=== PATIENT | male | born 1955 | race Caucasian/White ===

== ENCOUNTER 2025-02-16 09:38 | Outpatient (CLI) | payer MEDICARE, OTHER, SELFPAY ==
--- OUTSIDE RECORDS SUMMARY | 2025-02-15 12:10 | XMS_ITS | Continuity of Care Document ---
Author Name [facility] Organization [facility] Care Team Providers Care Metal Sprayer Name Role Phone [facility] Unavailable Unavailable Problems Combined list of problems from Department of Defense and Veterans Affairs facilities. It does not include entries that were removed or entered in error. Problem Status Onset Date Problem Type Date of Resolution Comments Source Anemia Active Condition [facility] N Anemia * (ICD-9-CM 285.9) Active Condition [facility] Atypical Chest Pain (ICD-9-CM 786.59) [place] Back Pain, Low Active Condition [place] Depression Active Condition [facility] N Depression (SNOMED CT 87176005) Active Condition [facility] Djd Of Hand Active Condition Jan 17, 2009 Entered By: ALICE RIVERA Comment: Bilat fingers [place] Elevated Liver Function Tests Active Condition [facility] N Fatigue (ICD-9-CM 780.79) Active Condition [facility] Fatty liver Active Condition [facility] N Gastroesophageal reflux disease Active Condition [facility] Hearing loss * (ICD-9-CM 389.9) Active [place] [facility] Liver function tests abnormal Active Condition [facility] Low back pain [facility] Opioid Dependence Active Condition [place] [facility] Tinnitus * (ICD-9-CM 388.30) Active Condition [place] Depression, NOS Inactive Condition 07/14/2014 [place] Lumbar Radiculopathy (ICD-9-CM 724.4) Inactive Condition 07/14/2014 [place] Other specified disorders of male genital organs (ICD-9-CM 608.89) Inactive Condition 07/14/2014 [place] OVERWEIGHT (ICD-9-CM 278.02) Inactive Condition 07/14/2014 [facility] UTI (ICD-9-CM 599.0) Inactive Condition 07/14/2014 [facility] Diagnosis: ICD-10-CM F33.42 Major depressive disorder, recurrent, in full remission Active Diagnosis [facility] Diagnosis: ICD-10-CM Z71.89 Other specified counseling Active Diagnosis [facility] Diagnosis: ICD-10-CM K76.0 Fatty (change of) liver, not elsewhere classified Active Diagnosis [facility] Diagnosis: ICD-10-CM Z23 Encounter for immunization Active Diagnosis [facility] Diagnosis: ICD-10-CM H40.013 Open angle with borderline findings, low risk, bilateral Active Diagnosis [facility] Diagnosis: ICD-10-CM G56.03 Carpal tunnel syndrome, bilateral upper limbs Active Diagnosis [facility] Diagnosis: ICD-10-CM Z71.9 Counseling, unspecified Active Diagnosis [facility] Diagnosis: ICD-10-CM I73.00 Raynaud's syndrome without gangrene Active Diagnosis [facility] Medications Combined list of outpatient medications from Department of Defense and [facility] facilities.Medications provided include 1) outpatient medications from the last 15 months, and 2) patient-reported medications. Medication Details Route Status Patient Instructions Prescription Expires Prescription Number Last Dispense Date Ordering Provider Order Date Order Qty Source FIBER 4GM CHEW TAB TAB,CHEWABL E CHEW BY MOUTH DIRECTED ORAL ACTIVE MACARENA AJ 2022 [place] [facility] HYDROMORPHO NE (FOR PUSH) INJ,SOLN INJECT SPINAL PAIN PUMP INTO THE VEIN DIRECTED INTRAV ENOUS ACTIVE MACARENA AJ 2022 [place] [facility] MULTIVITAMI NS W/MINERALS CAP/TAB TAKE 1 CAP(S)/T AB BY MOUTH DAILY ORAL ACTIVE COMERMESERET 2023 [place] [facility] PARAFFIN WAX USE AFFECTED AREA DIRECTED FOR SKIN TOPICA L ACTIVE 07/09/2025 [id number] COMER,MESERET R 2023 2724 [place] [facility] SERTRALINE HCL 100MG TAB TAKE ONE AND ONE-HALF TABLETS BY MOUTH DAILY FOR MOOD ORAL ACTIVE 07/24/2025 [id number] COMER,MESERET R 2024 135 [place] [facility] SERTRALINE HCL 100MG TAB TAKE ONE AND ONE-HALF TABLETS BY MOUTH DAILY FOR MOOD ORAL DISCONT INUED 01/24/2025 [id number] RAJ DEGROOT 2023 135 [place] [facility] TESTOSTERON E CYPIONATE 200MG/ML INJ (IN OIL) INJECT 100MG (0.5ML) INTO THE MUSCLE DIRECTED EVERY 2 WEEKS INTRAM MACARENA BARAJAS 2022 [place] [facility] URSODIOL CAP,ORAL TAKE 500MG BY MOUTH TWICE A DAY ORAL ACTIVE KRISTY RIVERA 2006 [place] [facility] VITAMIN E 400UNT CAP TAKE 1 CAPSULE BY MOUTH DAILY ORAL ACTIVE KRISTY RIVERA 2006 [place] [facility] Immunizations Combined list of available immunizations from the Department of Defense and [facility] facilities. Immunization Series Date Given Administered By Site Reaction Lot Number CVX Code Drug Bartender Helper Status Comments Source INFLUENZA, HIGH-DOSE, TRIVALENT, PF 2023 VAHESHARON Berto LEFT DELTO ID [id number] 135 complet ed Completed Series, ADMINISTE [place], UPPER [facility] PNEUMOCOCCAL CONJUGATE PCV20, POLYSACCHARID E [id number] CONJUGATE, ADJUVANT, PF 2022 KERMIT MOHAMUD LEFT DELTO ID [id number] 216 complet ed Completed Series, [place], [facility] INFLUENZA, HIGH-DOSE, QUADRIVALENT 2022 FLORECITA QUACH LEFT DELTO ID [id number] 197 complet ed Completed Series, ADMINISTE [place] AT [place], [facility] INFLUENZA, INJECTABLE, QUADRIVALENT, PRESERVATIVE FREE 2021 150 complet ed [facility] INFLUENZA, ADJUVANTED, QUADRIVALENT, PF 1 2020 205 complet ed HISTORICA L INFORMATI ON - FROM OTHER REGISTRY, [place] [facility]-19 (PFIZER), MRNA, LNP-S, PF, 30 MCG/0.3 ML DOSE 3 2020 208 complet ed HISTORICA L INFORMATI ON - FROM OTHER REGISTRY, [place] [facility] COVID-19 (PFIZER), MRNA, LNP-S, PF, 30 MCG/0.3 ML DOSE 2 2020 208 complet ed PFR; [id number]; 1 [place] COVID-19 (PFIZER), MRNA, LNP-S, PF, 30 MCG/0.3 ML DOSE 1 2020 208 complet ed PFR; [id number]; 1 [place] INFLUENZA, INJECTABLE, QUADRIVALENT, PRESERVATIVE FREE 2019 150 complet ed [place] [facility] INFLUENZA, INJECTABLE, QUADRIVALENT, PRESERVATIVE FREE 2018 150 complet ed [facility] INFLUENZA, SEASONAL, INJECTABLE 2017 141 complet ed [place] [facility] PNEUMOCOCCAL POLYSACCHARID E [id number] 2017 33 complet ed [place] [facility] INFLUENZA A & B (HISTORICAL) 2016 88 complet ed [place] [facility] TDAP 2016 115 complet ed [place] [facility] TDAP (HISTORICAL) 2016 115 complet ed [place] [facility] INFLUENZA A & B (HISTORICAL) 2015 88 complet ed [place] [id number] (HISTORICAL) 2014 133 complet ed [place] [facility] INFLUENZA A & B (HISTORICAL) 2014 88 complet ed [place] FLU,3 YRS (HISTORICAL) 2013 88 complet ed [place] [facility] FLU,3 YRS (HISTORICAL) 2012 88 complet ed [place] [facility] FLU,3 YRS (HISTORICAL) 2011 88 complet ed [place] [facility] INFLUENZA A & B (HISTORICAL) 2010 88 complet ed [place] [facility] FLU,3 YRS (HISTORICAL) 2009 88 complet ed [place] [facility] INFLUENZA A & B (HISTORICAL) 2008 88 complet ed [place] [facility] FLU,3 YRS (HISTORICAL) 2007 88 complet ed [place] [facility] PNEUMOCOCCAL, UNSPECIFIED FORMULATION 2006 109 complet ed [place] [facility] FLU,3 YRS (HISTORICAL) 2006 88 complet ed [place] INFLUENZA A & B (HISTORICAL) 2005 88 complet ed [place] [facility] TD(ADULT) UNSPECIFIED FORMULATION 2004 139 complet ed [place] [facility] Results Combined list of recent chemistry, hematology and other laboratory results from Department of Defense and Veterans Affairs, ranging from 15 months to all on record, depending upon the facility. Order Name Results Value Reference Range Date Interpretation Specimen Comments Source ANTI-NUC LEAR Ab NUCLEAR AB [TITER] IN SERUM BY HEP2 SUBSTRATE <1:80 <1:80 - 180 07/23 Specimen Type: SERUM No comment entered. Ordering Provider: MESERET CARLTON Report Released Date/Time: Jul 23, 2024 12:08 PM Reporting Lab: [facility] [address] [address] Performing Lab: [facility] [address] [address] [facility] CELIAC DISEASE AB COMPREHE NSIVE IGA [MASS/VOLU ME] IN SERUM OR PLASMA 179 mg/dL 61 - 437 07/23 Specimen Type: SERUM No comment entered. Ordering Provider: MESERET CARLTON Report Released Date/Time: Jul 23, 2024 12:08 PM Reporting Lab: [facility] [address] [address] Performing Lab: [facility] [address] [address] [facility] CELIAC DISEASE AB COMPREHE NSIVE TISSUE TRANSGLUTA MINASE IGA AB [UNITS/VOL UME] IN SERUM <2 0 - 3 07/23 Specimen Type: SERUM No comment entered. Ordering Provider: MESERET CARLTON Report Released Date/Time: Jul 23, 2024 12:08 PM Reporting Lab: [address] [address] Performing Lab: [place] [id number] [facility] CELIAC DISEASE AB COMPREHE NSIVE TISSUE TRANSGLUTA MINASE IGG AB [UNITS/VOL UME] IN SERUM 3 0 - 5 07/23 Specimen Type: SERUM No comment entered. Ordering Provider: MESERET CARLTON Report Released Date/Time: Jul 23, 2024 12:08 PM Reporting Lab: [place] [phone] Performing Lab: [place] [id number] [facility] CELIAC DISEASE AB COMPREHE NSIVE ENDOMYSIUM IGA AB [PRESENCE] IN SERUM Negative 07/23 Specimen Type: SERUM No comment entered. Ordering Provider: MESERET CARLTON Report Released Date/Time: Jul 23, 2024 12:08 PM Reporting Lab: [address] [address] Performing Lab: [place] [id number] [facility] CELIAC DISEASE AB COMPREHE NSIVE GLIADIN PEPTIDE IGA AB [UNITS/VOL UME] IN SERUM 3 0 - 19 07/23 Specimen Type: SERUM No comment entered. Ordering Provider: MESERET CARLTON Report Released Date/Time: Jul 23, 2024 12:08 PM Reporting Lab: [address] [address] Performing Lab: [address] [address] [facility] CELIAC DISEASE AB COMPREHE NSIVE GLIADIN PEPTIDE IGG AB [UNITS/VOL UME] IN SERUM 2 0 - 19 07/23 Specimen Type: SERUM No comment entered. Ordering Provider: MESERET CARLTON Report Released Date/Time: Jul 23, 2024 12:08 PM Reporting Lab: [address] [address] Performing Lab: [address] [address] [facility] HBSAB HEPATITIS B VIRUS SURFACE AB [PRESENCE] IN SERUM BY IMMUNOASSA Y REACTIVE 07/23 Specimen Type: SERUM Comment: FOR HBSAB TESTING: Reactive HBsAb denotes immunity by vaccination or recovery from Hepatitis B infection. Individuals found to be reactive for both HBV Core AB total and HBsAb are immune due to prior natural infection. Individuals found to be nonreactive for HBV Core AB total and reactive for HBsAb (anti-HBs) are immune due to prior immunizatio n. Individuals found to be reactive for HBV Core AB total and nonreactive for HBsAb (anti-HBs) are considered to have a current Hepatitis B infection, either acute or chronic. Individuals found to be nonreactive for both HBV Core AB total and HBsAb are at risk for Hepatitis B infection (HBV) and HBV immunizatio n should be considered. FOR HEPATITIS A IGG ANTIBODY Reactive HAV-IgG indicates previous Hepatitis A infection or immunity by vaccination . Ordering Provider: MESERET CARLTON Report Released Date/Time: Jul 23, 2024 12:08 PM Reporting Lab: [address] [address] Performing Lab: [address] [address] [facility] HEPATITI S A IGG HEPATITIS A IGG Nonreact sky 07/23 Specimen Type: SERUM Comment: FOR HBSAB TESTING: Reactive HBsAb denotes immunity by vaccination or recovery from Hepatitis B infection. Individuals found to be reactive for both HBV Core AB total and HBsAb are immune due to prior natural infection. Individuals found to be nonreactive for HBV Core AB total and reactive for HBsAb (anti-HBs) are immune due to prior immunizatio n. Individuals found to be reactive for HBV Core AB total and nonreactive for HBsAb (anti-HBs) are considered to have a current Hepatitis B infection, either acute or chronic. Individuals found to be nonreactive for both HBV Core AB total and HBsAb are at risk for Hepatitis B infection (HBV) and HBV immunizatio n should be considered. FOR HEPATITIS A IGG ANTIBODY Reactive HAV-IgG indicates previous Hepatitis A infection or immunity by vaccination . Ordering Provider: MESERET CARLTON Report Released Date/Time: Jul 23, 2024 12:08 PM Reporting Lab: [place] [phone] Performing Lab: [place] [id number] IMMUNOGL OBULINS QUANT (SERUM) IGA [MASS/VOLU ME] IN SERUM OR PLASMA 178 mg/dL 61 - 437 07/23 Specimen Type: SERUM No comment entered. Ordering Provider: MESERET CARLTON Report Released Date/Time: Jul 23, 2024 12:08 PM Reporting Lab: [place] [phone] Performing Lab: [place] [id number] [facility] IMMUNOGL OBULINS QUANT (SERUM) IGG [MASS/VOLU ME] IN SERUM OR PLASMA 902 mg/dL 603 - 1613 07/23 Specimen Type: SERUM No comment entered. Ordering Provider: MESERET CARLTON Report Released Date/Time: Jul 23, 2024 12:08 PM Reporting Lab: [place] [phone] Performing Lab: [place] [id number] [facility] IMMUNOGL OBULINS QUANT (SERUM) IGM [MASS/VOLU ME] IN SERUM OR PLASMA 35 mg/dL 20 - 172 07/23 Specimen Type: SERUM No comment entered. Ordering Provider: MESERET CARLTON Report Released Date/Time: Jul 23, 2024 12:08 PM Reporting Lab: [place] [phone] Performing Lab: [address] [address] [facility] PROTHROM BIN TIME PROTHROMBI N TIME (PT) 13.6 s 11.7 - 14.4 07/23 Specimen Type: PLASMA No comment entered. Ordering Provider: MESERET CARLTON Report Released Date/Time: Jul 23, 2024 12:08 PM Reporting Lab: [address] [address] Performing Lab: [address] [address] [facility] PROTHROM BIN TIME INR IN PLATELET POOR PLASMA BY COAGULATIO N ASSAY 1.06 0.87 - 1.14 07/23 Specimen Type: PLASMA No comment entered. Ordering Provider: MESERET CARLTON Report Released Date/Time: Jul 23, 2024 12:08 PM Reporting Lab: [address] [address] Performing Lab: [address] [address] [facility] AFP, SERUM, TUMOR MARKER ALPHA-1-FE TOPROTEIN. TUMOR MARKER [MASS/VOLU ME] IN SERUM OR PLASMA 2.4 ng/mL 0.0 - 8.4 07/23 Specimen Type: SERUM Comment: [employer] Electrochem iluminescen ce Immunoassay (ECLIA) . Values obtained with different assay methods or kits cannot be used interchange ably. Results cannot be interpreted as absolute evidence of the presence or absence of malignant disease. This test is not interpretab le in females. Ordering Provider: MESERET CARLTON Report Released Date/Time: Jul 23, 2024 12:08 PM Reporting Lab: [address] [phone] Performing Lab: [address] [address] [facility] ALPHA-1- ANTITRYP SIN TOT & PHEN ALPHA 1 ANTITRYPSI N [MASS/VOLU ME] IN SERUM OR PLASMA 143 mg/dL 101 - 187 07/23 Specimen Type: SERUM Comment: MM Phenotype is considered to be normal , producing normal serum levels of alpha-1-pro tease inhibitor and not associated with clinical disease. Associated A1A total serum levels in other phenotypes and their incidence in the general population are shown in the table below. Phenotype Population % function A-1-AT Conc.* Incidence % compared to MM (Typical Range) MM 86.5% 100% (96 - 189) MS 8.0% 86% (83 - 161) MZ 3.9% 61% (60 - 111) FM 0.4% 100% (93 - 191) SZ 0.3% 41% (42 - 75) SS 0.1% 64% (62 - 119) ZZ 0.05% 19% (16 - 38) FS 0.05% 70% (70 - 128) FZ Unknown 46% (44 - 88) FF Unknown Unknown *A-1-AT concentrati on in the homozygous MM phenotype is taken as the reference normal. Percent deficiency in each phenotype is reported relative to this reference. Ranges used to confirm phenotype. Ordering Provider: MESERET CARLTON Report Released Date/Time: Jul 23, 2024 12:08 PM Reporting Lab: [facility] [address] [address] Performing Lab: [facility] [address] [address] [facility] ALPHA-1- ANTITRYP SIN TOT & PHEN ALPHA 1 ANTITRYPSI N PHENOTYPE [IDENTIFIE R] IN SERUM OR PLASMA BY IMMUNOFIXA TION MS 07/23 Specimen Type: SERUM Comment: MM Phenotype is considered to be normal , producing normal serum levels of alpha-1-pro tease inhibitor and not associated with clinical disease. Associated A1A total serum levels in other phenotypes and their incidence in the general population are shown in the table below. Phenotype Population % function A-1-AT Conc.* Incidence % compared to MM (Typical Range) MM 86.5% 100% (96 - 189) MS 8.0% 86% (83 - 161) MZ 3.9% 61% (60 - 111) FM 0.4% 100% (93 - 191) SZ 0.3% 41% (42 - 75) SS 0.1% 64% (62 - 119) ZZ 0.05% 19% (16 - 38) FS 0.05% 70% (70 - 128) FZ Unknown 46% (44 - 88) FF Unknown Unknown *A-1-AT concentrati on in the homozygous MM phenotype is taken as the reference normal. Percent deficiency in each phenotype is reported relative to this reference. Ranges used to confirm phenotype. Ordering Provider: MESERET CARLTON Report Released Date/Time: Jul 23, 2024 12:08 PM Reporting Lab: [address] [address] Performing Lab: [address] [address] [facility] CERULOPL ASMIN CERULOPLAS MIN [MASS/VOLU ME] IN SERUM OR PLASMA 26.8 mg/dL 16.0 - 31.0 07/23 Specimen Type: SERUM No comment entered. Ordering Provider: MESERET CARLTON Report Released Date/Time: Jul 23, 2024 12:08 PM Reporting Lab: [address] [address] Performing Lab: [address] [address] [facility] MITOCHON DRIAL Ab MITOCHONDR IA AB [TITER] IN SERUM BY IMMUNOFLUO RESCENCE <1:20 <1:20 - 120 07/23 Specimen Type: SERUM Comment: FOR HBSAG TEST: Reactive HBsAG indicates acute or chronic Hepatitis B infection. FOR HCV TESTING: Reactive HCV indicates probable Hepatitis C infection. All reactive Hepatitis C antibody results are flagged (reported as REACTIVE H) to enhance infectious disease tracking for [facility] patients. A nonreactive HCV antibody result does not exclude the possibility of exposure to HCV. Refer to https://www .hepatitis. [place].gov/ and the latest [facility] Hepatitis Directive for additional information and supplementa l testing guidelines. FOR ANTI-HBc TOTAL TESTING: The presence of anti-HBc total (IgG and IgM) is an indicator of HBV infection, either current (acute or chronic) or prior. Individuals found to be reactive for both anti-HBc total and HBsAb(anti- HBs) are immune due to prior natural infection. Individuals found to be nonreactive for anti-HBc total and reactive for HBsAb are immune due to a prior immunizatio n. Individuals found to be reactive for anti-HBc total and nonreactive for HBsAb are considered to have a current Hepatitis B infection (acute or chronic). Individuals found to be nonreactive for both anti-Hbc total and HBsAb are at risk for Hepatitis B infection and HBV immunizatio n should be considered. Ordering Provider: MESERET CARLTON Report Released Date/Time: Jul 23, 2024 12:08 PM Reporting Lab: [facility] [address] [address] Performing Lab: [facility] [address] [address] [facility] Vital Signs Combined list of inpatient and outpatient Vital Signs from Department of [facility] and [facility], ranging from 12 months to all on record, depending upon the facility. Vital Sign Value Date Comments Source SYSTOLIC BLOOD PRESSURE 163 07/23/2024 11:40:04 [facility] DIASTOLIC BLOOD PRESSURE 76 07/23/2024 11:40:04 [facility] PULSE OXIMETRY 99 07/23/2024 11:40:04 [facility] WEIGHT 190 07/23/2024 11:40:04 [place] [facility] BMI 27 kg/m2 07/23/2024 11:40:04 [place] [facility] PAIN 8 07/23/2024 11:40:04 [place] [facility] TEMPERATURE 98.2 07/23/2024 11:40:04 [place] [facility] PULSE 79 07/23/2024 11:40:04 [place] [facility] Encounters Combined list of: 1) Encounters from Department of Veterans Affairs facilities going backup to the last 18 months, not all [place] inpatient encounters are included; 2) Encounters from the Department of [facility] facilities going backup to 280 months. 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, unspeci ASHA Galvan 08/30 [place] [facility] O/P EST MOD 30 MIN [id number] Diagnos is: ICD-10- CM I73.00 Raynaud 's syndrom e without gangren e Berto AJ B 09/02 [place] [facility] Outpatient Encounter [id number] 09/03 [place] Outpatient Encounter [id number] 09/05 [place] [facility] HC PRO PHONE CALL 5-10 MIN [id number] Diagnos is: ICD-10- CM Z71.89 Other specifi ed corporate counselor Berto Colindres 10/17 [place] [facility] OFF/OP EST MAY X REQ PHY/QHP [id number] Diagnos is: ICD-10- CM 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 Hand Packer/Packager ing, unspeci chase SHARP,NO RMA J 10/20 [place] [facility] SELF CARE MNGMENT TRAINING [id number] Diagnos is: ICD-10- CM G56.03 Carpal tunnel syndrom e, bilater al upper limbs SAPPHIRE ROJAS S 11/17 [place] [facility] O/P EST HI 40 MIN [id number] Diagnos is: ICD-10- CM F33.42 Major depress sky disorde r, recurre nt, in full remissi on MONTY DEGROOT 01/23 [place] [facility] COMPRE OPH EXAM EST PT 1/> [id number] Diagnos is: ICD-10- CM H40.013 Open angle with borderl ine finding s, low risk, taina al LEYDI CHERRY 01/27 [place] [facility] Outpatient Encounter [id number] 02/16 [place] [facility] IMMUNIZ[facility] ON ADMIN [id number] Diagnos is: ICD-10- CM Z23 Encount er for immuniz atSHARON Holguin 05/20 [facility] Outpatient Encounter [id number] 06/23 [place] [facility] Outpatient Encounter [id number] 07/23 [place] [facility] OFFICE O/P EST MOD 30 MIN [id number] Diagnos is: ICD-10- CM K76.0 Fatty (change of) liver, not elsewhe re classif ied COMER,MESERET R 07/23 [place] [facility] Outpatient Encounter [id number] 07/24 [place] [facility] Outpatient Encounter [id number] 07/24 [place] Outpatient Encounter [id number] 07/24 [place] [facility] Outpatient Encounter [id number] 07/27 [place] HC PRO PHONE CALL 5-10 MIN [id number] Diagnos is: ICD-10- CM Z71.89 Other specifi ed corporate counselor Berto Colindres A 07/27 [place] [facility] Outpatient Encounter [id number] 08/11 [place] Outpatient Encounter [id number] 08/19 [place] PH1 ASSMT&MGMT NQHP 5-10 [id number] Diagnos is: ICD-10- CM Z71.89 Other specifi ed corporate counselor Berto Colindres A 08/19 [place] [facility] Outpatient Encounter [id number] 09/07 [place] Outpatient Encounter [id number] 09/24 [place] SYNCH AUDIO-VIDE O EST MOD 30 [id number] Diagnos is: ICD-10- CM F33.42 Major depress sky disorde r, recurre nt, in full remissi on MONTY DEGROOT PASCALE 01/14 [place] [facility] Outpatient Encounter [id number] 01/22 [place] [facility] Social History Combined list of available smoking, tobacco, and other social history from Department of Defense and [facility] facilities. Social History Type Response Date Comment Sourc e Tobacco smoking status [place] VA-TOBACCO NEVER USED 08/30/2023 [facility] History of tobacco use TX-TOBACCO NEVER USED 07/24/2023 [facility] History of tobacco use TX-TOBACCO NEVER USED 10/14/2020 [facility] History of tobacco use TX-TOBACCO NEVER USED 09/10/2019 [facility] History of tobacco use VATOBACCO NEVER USED 09/15/2018 [facility] History of tobacco use V9 LIFETIME NON-USER OF TOBACCO 08/13/2017 [facility] History of tobacco use V9 LIFETIME NON-USER OF TOBACCO 08/14/2016 [facility] History of tobacco use V9 LIFETIME NON-USER OF TOBACCO 07/15/2015 [facility] History of tobacco use V9 LIFETIME NON-USER OF TOBACCO 07/14/2014 [facility] History of tobacco use V9 LIFETIME NON-USER OF TOBACCO 07/07/2013 [facility] History of tobacco use V9 LIFETIME NON-USER OF TOBACCO 11/23/2011 [facility] History of tobacco use V9 LIFETIME NON-USER OF TOBACCO 01/17/2011 [facility] History of tobacco use V9 LIFETIME NON-USER OF TOBACCO 10/22/2006 [facility] This section is an empty social history section. [facility] Plan of Care List of future care activities from Department of [facility] facilities. Additional future care activities may be listed in the Assessment and Plan section. Date/Time Care Activity Care Activity Detail Facili ty 03/17/2025 AMBULATORY - MEDICINE AMBULATORY - MEDICI [facility]
--- OUTSIDE RECORDS SUMMARY | 2025-02-16 09:43 | XMS_ITS | Clinical Summary ---
Author Organization Healthcare Address [address] [place] [address] Care Team Providers Care Frame Carver Spindle Name Role Phone Pcp, No Primary Care Provider Unavailabl e Social History Tobacco Use Types Packs/Day Years Used Date Smoking Tobacco: Never Assessed Sex and Gender Information Value Date Recorded Sex Assigned at Not on file Legal Sex Male 7:37 PM EDT Gender Identity Not on file Sexual Orientation Not on file Plan of Treatment Not on file Insurance [employer]ARE [facility] Care Teams Frame Carver Spindle Relationship Specialty Start Date End Date Pcp, [facility] [address] [place] [address] PCP - General Family Medicine 04/21/24
--- OUTSIDE RECORDS SUMMARY | 2025-02-16 09:43 | XMS_ITS | Encounter Summary ---
Author Organization Healthcare Address [address] [place] [address] Care Team Providers Care Marketing Project Manager Name Role Phone Pcp, No Primary Care Provider Unavailabl e Encounter Details Date Type Department Care Team (Late st Contact Info) Description 04/23/2024 Lab Requisition [facility] [address] [place] [address] Oumar Eldridge DPM [address] [place] [address] Localized swelling, mass and lump, left lower limb Social History Tobacco Use Types Packs/Day Years Used Date Smoking Tobacco: Never Assessed Sex and Gender Information Value Date Recorded Sex Assigned at Not on file Legal Sex Male 7:37 PM EDT Gender Identity Not on file Sexual Orientation Not on file documented as of this encounter Plan of Treatment Not on file documented as of this encounter Procedures Procedure Name Priority Date/Time Associated Diagnosis Comments SURGICAL PATHOLOGY EXAM Routine 04/23/2024 Localized swelling, mass and lump, left lower limb documented in this encounter Results * Surgical Pathology Exam (04/23/2024) Case Report Surgical Pathology Case: [id number] Authorizing Provider: Oumar Eldridge DPM Collected: 04/23/2024 Ordering Location: [facility] Received: 04/23/2024 1421 Pathologist: Kaity Sepulveda MD Specimen: Foot, Left, Left Foot 5th Metatarsal Base Mass 04/27/2024 1:18 PM EDT [facility] Final Diagnosis A. LEFT FOOT, 5TH METATARSAL BASE MASS, EXCISION: - SYNOVIAL TISSUE WITH MILD CHRONIC INFLAMMATION. - NEGATIVE FOR MALIGNANCY. 04/27/2024 1:18 PM EDT [facility] at 1318 EDT Clinical Information Localized swelling, mass and lump, left lower limb Left foot 5th metatarsal base mass 04/27/2024 1:18 PM EDT [facility] Gross Description A. LEFT FOOT 5TH METATARSAL BASE MASS Received in formalin labeled l eft foot 5th metatarsal base mass , is one pink-villar portion of cartilage measuring 2.4 x 1.6 x 0.6 cm. Auto Tester sections are submitted in cassette A1. Cold Time: 0 Jessica B Campbell 04/27/2024 1:18 PM EDT [facility] Note: A resident was involved in the service. I attest I examined the relevant preparations for the specimens and confirmed the diagnosis or interpretation. 04/27/2024 1:18 PM EDT [facility] Tissue Structure of left foot / Unknown 04/23/2024 04/23/2024 2:21 PM EDT us Oumar Eldridge DPM LAB PATHOLOGY ORDERABLES Fin al Result [facility] [address] [place] [address] documented in this encounter Visit Diagnoses Diagnosis Localized swelling, mass and lump, left lower limb documented in this encounter Care Teams Marketing Project Manager Relationship Specialty Start Date End Date Pcp, No [address] [place] [address] PCP - General Family Medicine 04/21/24 documented as of this encounter
--- OUTSIDE RECORDS SUMMARY | 2025-02-16 09:43 | XMS_ITS | Clinical Summary ---
Author Organization [facility] Address [address] [place] [address] Phone Care Team Providers Care Rn Or Lvn Name Role Phone Unavailable Unavailable Conditions or Problems No information available. Medications No information available. Medications Administered No information available. Allergies, Adverse Reactions, Alerts No information available. Results No information available. Plan of Care No information available. Procedures No information available. Vital Signs No information available. Immunizations No information available. Advance Directives No information available.
[2025-02-16 10:13] LABS: Hematocrit 40.2 % (42.0-52.0); Hemoglobin 13.5 g/dL (14.1-18.0); Immature Granulocytes % 0.4 %; Mean Corpuscular HGB Conc 33.6 g/dL (31.8-35.4); Mean Corpuscular Hemoglobin 31.3 pg (27.0-31.2); Mean Corpuscular Volume 93.1 fl (80-94); Nucleated Red Blood Cells % 0 %; Platelet Count 152 K/mm3 (142-424); Red Blood Count 4.32 M/mm3 (4.60-6.20); Red Cell Distribution Width-SD 43.8 fL; White Blood Count 5.5 K/mm3 (4.8-10.8)
[2025-02-16 10:36] LABS: INR 1.03 (0.9-1.1); Prothrombin Time 11.4 seconds (10.1-12.5)
[2025-02-16 10:41] LABS: Chloride 99 mmol/L (98-107)
[2025-02-16 10:42] LABS: Potassium 4.7 mmoL/L (3.5-5.1); Sodium 139 mmol/L (136-145)
[2025-02-16 10:45] LABS: Alanine Aminotransferase 24 U/L (12-78); Alkaline Phosphatase 109 U/L (38-126); Aspartate Amino Transferase 38 U/L (17-59); Bilirubin,Total 0.8 mg/dl (0.2-1.3); Blood Urea Nitrogen 13 mg/dl (9-20); Calcium 8.8 mg/dl (8.4-10.2); Creatinine,Serum 0.90 mg/dl (0.66-1.25); Estimated Glomerular Filt Rate 84 ml/min (>60); GFR (African American) 101 ML/MIN (>60); Glucose 103 mg/dl (74-100); Total Protein,Serum 7.0 g/dl (6.3-8.2)
[2025-02-16 11:41] LABS: Albumin Level 4.6 g/dl (3.5-5.0); Albumin/Globulin Ratio 1.9 (1.1-1.8); Anion Gap 11.7 mEq/L (5-15); Carbon Dioxide 33 mmol/L (22.0-30.0); Globulin 2.4 g/dL (1.3-3.2)
== END 2025-02-16 23:59 | disposition home or self-care (01) ==
LOC: LAB 09:40
PROVIDERS: PCP Internal Medicine; Visit Provider Nurse Practitioner Family
DX: K74.00 Hepatic fibrosis, unspecified (principal)
CPT/HCPCS: 36415; 80053; 85025; 85610